=== PATIENT | female | born 1990 | race Caucasian/White ===

== ENCOUNTER 2024-04-13 00:41 | Emergency (ER) | payer SELFPAY ==
[~2024-04-13] VITALS: Ht 160 cm; Wt 73.0 kg
[2024-04-13 01:01] VITALS: O2SAT 99
[2024-04-13 01:47] LABS: HEMATOCRIT. 36.8 % (36.0-48.0); HEMOGLOBIN. 12.2 g/dL (12.0-16.0); MEAN CORPUSCULAR HEMOGLOBIN 30.6 pg (28.0-32.0); MEAN CORPUSCULAR HGB CONC 33.1 g/dL (31.0-37.0); MEAN CORPUSCULAR VOLUME 92.6 fL (81.0-99.0); MEAN PLATELET VOLUME 7.8 fl (7.4-10.4); PLATELET 338 x1000/uL (130-400); RED BLOOD CELL COUNT 3.98 mill/uL (4.2-5.4); RED CELL DISTRIBUTION WIDTH 13.7 % (11.6-14.6); WHITE BLOOD COUNT 19.1 x1000/uL (4.5-11.0)
[2024-04-13 01:50] LABS: DIFFERENTIAL COMMENT 1
[2024-04-13 02:03] LABS: CHLORIDE 107 mEq/L (98-107); POTASSIUM 4.1 mEq/L (3.5-5.1); SODIUM 139 mEq/L (136-145)
[2024-04-13 02:04] LABS: CARBON DIOXIDE 21 mEq/L (21-32)
[2024-04-13 02:05] LABS: CALCIUM 9.6 mg/dL (8.7-10.4)
[2024-04-13 02:09] LABS: CREATININE 0.9 mg/dL (0.6-1.0); GLUCOSE 150 mg/dL (70-105)
[2024-04-13 02:10] LABS: UREA NITROGEN BLOOD 11 mg/dL (9-23)
[2024-04-13 02:11] LABS: ALANINE AMINOTRANSFERASE 19 IU/L (10-49); ALBUMIN 4.8 g/dL (3.2-4.8); ASPARTATE AMINOTRANSFERASE 17 IU/L (<34)
[2024-04-13 02:12] LABS: BILIRUBIN DIRECT 0.3 mg/dL (<=3.0); PROTEIN TOTAL 7.9 g/dL (6.0-8.3)
[2024-04-13 03:15] LABS: HCG SCREEN NEGATIVE
[2024-04-13] MEDS ORDERED: FAMO20TA8 MT (04:08)
[2024-04-13] MEDS ORDERED: ONDA-239 PO (04:08)
[2024-04-13] MEDS ORDERED: AMOX1TAB16 MT (04:08)
[2024-04-13] MEDS ORDERED: TRAM50TA3 MT (04:08)
[2024-04-13 04:37] VITALS: BP 125/82; PULSE 83; RESP 16; TEMP 36.72516; O2SAT 99
[2024-04-13 04:43] LABS: PLATELET ESTIMATE NORMAL
== END 2024-04-13 04:39 | disposition home or self-care (01) ==
LOC: ER 00:41
DX: K52.9 Noninfective gastroenteritis and colitis, unspecified (principal)
CPT/HCPCS: 36415; 80048; 80076; 84703; 85025; 99283